=== PATIENT | female | born 1990 | race Caucasian/White ===

== ENCOUNTER 2017-01-28 01:37 | Inpatient (IN) | payer OTHER ==
--- NOTE | 2017-01-25 13:16 | MH ---
cc: FRANCA TEJEDA DATE OF ADMISSION 01/28/2017 DATE OF 1990 ADMISSION DIAGNOSIS 1. Term 2. Previous HISTORY OF PRESENT ILLNESS The patient is a 26-year-old white female para 1-0-1-1 with an LMP of 04/30/2016, EDC of 01/2017. Her first delivery by after pushing for three hours with no descent. Her course has been benign. She is now admitted for repeat section. ADDITIONAL PAST MEDICAL HISTORY In 2000, she had left hip surgery. MEDICATIONS Vitamins ALLERGIES PINEAPPLE, BANANA, AVOCADO SERIOUS MEDICAL ILLNESS Hypothyroidism since her first on Synthroid 15 mg daily. SOCIAL HISTORY , homemaker. Alcohol, tobacco and drugs are none. PHYSICAL EXAM This a well-nourished well-developed white female. VITAL SIGNS: Stable. HEENT: Exam is normal. CHEST: Clear. HEART: Regular rate. BREASTS: Symmetrical. ABDOMEN: Gravid, EFW 3000 grams with the placenta posterior. ASSESSMENT As above. PLAN She is now admitted for repeat section. While in the office, I explained the procedures, risks, benefits and complications and patient would like to proceed. MD GERRY Dunn/MYRIAM /12:47 PM /1:01 PM
[2017-01-28] VITALS (10 sets, daily range): BP systolic 109–125; BP diastolic 58–72; PULSE 60–121; RESP 8–22; TEMP 97.4–98.8; O2SAT 99–100
[~2017-01-28] VITALS: Ht 157.5 cm; Wt 82.6 kg
[2017-01-28 02:02] LABS: AUTOMATED NEUTROPHIL # 5.1 TH/MM3 (1.8-7.7); BASOPHIL # 0.1 TH/MM3 (0-0.2); BASOPHIL % 0.8 % (0.0-2.0); EOSINOPHIL # 0.3 TH/MM3 (0-0.4); EOSINOPHIL % 2.8 % (0.0-4.0); HEMATOCRIT 39.8 % (35.0-46.0); HEMO FLAGS DIFF FINAL; LYMPH % 33.3 % (9.0-44.0); LYMPHOCYTE # 3.1 TH/MM3 (1.0-4.8); MEAN CELL VOLUME 88.4 FL (80.0-100.0); MEAN CORPUSCULAR HEMOGLOBIN 30.1 PG (27.0-34.0); MEAN CORPUSCULAR HGB CONC 34.1 % (32.0-36.0); MONO % 7.9 % (0.0-8.0); NEUT % 55.2 % (16.0-70.0); PLATELET COUNT 179 TH/MM3 (150-450); RED BLOOD COUNT 4.51 MIL/MM3 (4.00-5.30); RED CELL DISTRIBUTION WIDTH 13.7 % (11.6-17.2); WHITE BLOOD COUNT 9.3 TH/MM3 (4.0-11.0)
[2017-01-28 02:04] LABS: BACTERIA, URINE MANY /hpf; BLOOD, URINE MOD (NEG); COMMENT (UR) CULTURE INDICATED; CULTURE IF INDICATED CULTURE INDICATED; GLUCOSE,URINE NEG (NEG); KETONE, URINE NEG (NEG); NITRITE,URINE NEG (NEG); PH, URINE 6.5 (5.0-8.5); SQUAMOUS EPITHELIAL CELL URINE 8 /hpf (0-5); URINE COLOR LIGHT-YELLOW (YELLW/STRAW)
[2017-01-28] MEDS ORDERED: LACTATED RINGER'S 1000 ML IV ONE (02:15)
[2017-01-28] MEDS ORDERED: ceFAZolin 2 GM PREMIX 50 ML IV SCH (02:15)
[2017-01-28] MEDS ORDERED: CITRIC ACID-SODIUM CITRATE LIQ 30 ML UDC PO SCH (02:15)
[2017-01-28] MEDS: SODIUM CHLORIDE 0.9% FLUSH 5 ML FLUSH IV SCH ×2 (02:52→09:00)
[2017-01-28] MEDS ORDERED: ACETAMINOPHEN 1000 MG/100 ML 100 ML IV ONE (02:57)
[2017-01-28] MEDS ORDERED: KETOROLAC TROMETHAMINE 60 MG/2 ML (IM) VIAL IM PRN (03:30)
[2017-01-28] MEDS ORDERED: OXYTOCIN 30 UNITS-500ML PREMIX 500 ML IV ONE (03:30)
[2017-01-28] MEDS ORDERED: oxyCODONE/ACETAMINOPHEN 5 MG/325 MG TAB PO PRN (03:30)
[2017-01-28] MEDS ORDERED: ZOLPIDEM TARTRATE 5 MG TAB PO PRN (03:30)
[2017-01-28] MEDS ORDERED: KETOROLAC TROMETHAMINE 30 MG/ML (IVP) VIAL IV PUSH PRN (03:30)
[2017-01-28] MEDS ORDERED: MEASLES, MUMPS, RUBELLA VACCINE 0.5 ML VIAL SQ ONE (03:30)
[2017-01-28] MEDS ORDERED: SIMETHICONE 80 MG CHEWABLE TAB PO PRN (03:30)
[2017-01-28] MEDS ORDERED: SODIUM CHLORIDE 0.9% FLUSH 5 ML FLUSH IV PRN (03:30)
[2017-01-28] MEDS ORDERED: ONDANSETRON HCL 4 MG/2 ML VIAL IVP PRN (03:30)
[2017-01-28] MEDS ORDERED: OXYTOCIN 30 UNITS-500ML PREMIX 500 ML ONE (04:27)
[2017-01-28] MEDS ORDERED: EPIDURAL-DO NOT ADMINISTER ANTICOAGULANTS PRN (05:15)
[2017-01-28] MEDS ORDERED: EPIDURAL-DIPHENHYDRAMINE HCL 50 MG CAP PO PRN (05:15)
[2017-01-28] MEDS ORDERED: EPIDURAL-DIPHENHYDRAMINE HCL 50 MG/ML VIAL IV PUSH PRN (05:15)
[2017-01-28] MEDS ORDERED: EPIDURAL-NO SYSTEMIC NARCOTICS PRN (05:15)
[2017-01-28] MEDS ORDERED: EPIDURAL-NALOXONE HCL 0.4 MG/ML AMP IV PUSH PRN (05:15)
[2017-01-28] MEDS: LEVOTHYROXINE SODIUM 50 MCG TAB PO SCH (07:25)
--- NOTE | 2017-01-28 07:40 | MP ---
cc: FRANCA TEJEDA DATE OF SURGERY 01/28/2017 PREOPERATIVE DIAGNOSES Term , early labor. Previous . POSTOPERATIVE DIAGNOSES Term , early labor. Previous . Delivered. PROCEDURE Repeat low transverse section. ANESTHESIA Spinal. SURGEON Franca Tejeda MD ESTIMATED BLOOD LOSS About 500 cc. FLUIDS 1.6 liters crystalloid. OBJECTIVE FINDINGS Following the induction of adequate spinal anesthesia the patient was prepped and draped supine on the operating room table, in the left lateral tilt position in sterile fashion with the bladder being drained via Ferguson catheterization. The abdomen was opened through a Pfannenstiel incision using a knife to cut down through the skin to the fascia. The fascia was opened transversely, stripped from the muscles. The rectus muscle was split in the midline and the peritoneum opened sharply without incident. The bladder flap was taken down sharply, retracted inferiorly with the Vergas blade. The lower uterine segment was incised transversely with a knife, extended with blunt dissection revealing clear fluid. The baby was in the LOT position, was gently delivered with assistant refinery operator guidance and fundal pressure. The mouth was suctioned, the cord clamped and cut and the baby to the team, a viable, vigorous male, Apgars 8 and 9, weight 8 pounds even. Cord blood was collected for typing, the placenta for donation and the uterine cavity cleaned with laps and exteriorized. The uterine wound was then closed in two layers of running suture, the first with a running, locking stitch of 0 Vicryl, the second with a running imbricating stitch of 0 Vicryl. Posterior inspection of the uterus, tubes and ovaries was normal. The uterus was now replaced in the abdominal cavity, irrigation performed and the bladder flap was closed with a running stitch of 3-0 Vicryl. All laps and retractors were removed. Counts were correct. The anterior peritoneum was closed with a running stitch of 2-0 Vicryl. The fascia was closed with a running locking stitch of Vicryl from corners to the midline and tied, subcu with continuous 3-0 Vicryl and skin with running subcuticular 3-0 Monocryl. Dermabond was applied. All counts were correct and the patient was awakened and taken to the recovery room in good position. MD GERRY Dunn/FLORI /3:38 AM /7:32 AM
[2017-01-28] MEDS: LACTATED RINGER'S 1000 ML IV SCH ×2 (08:55→17:12)
[2017-01-28] MEDS: ACETAMINOPHEN 1000 MG/100 ML VIAL IV SCH ×2 (11:37→18:14)
[2017-01-28] MEDS: LACTATED RINGER'S 1000 ML INJ 1,000 ML IV SCH (11:38)
[2017-01-28] MEDS ORDERED: OXYTOCIN 30 UNITS-500ML PREMIX 500 ML IV PRN (18:15)
[2017-01-29] VITALS: BP 135/75; PULSE 80; RESP 17; TEMP 98.7; O2SAT 100
[2017-01-29] MEDS: ACETAMINOPHEN 1000 MG/100 ML VIAL IV SCH (02:52)
[2017-01-29 05:59] LABS: AUTOMATED NEUTROPHIL # 5.7 TH/MM3 (1.8-7.7); BASOPHIL % 0.5 % (0.0-2.0); EOSINOPHIL # 0.1 TH/MM3 (0-0.4); EOSINOPHIL % 1.1 % (0.0-4.0); HEMATOCRIT 35.3 % (35.0-46.0); HEMO FLAGS DIFF FINAL; LYMPHOCYTE # 1.3 TH/MM3 (1.0-4.8); MEAN CELL VOLUME 89.4 FL (80.0-100.0); MEAN CORPUSCULAR HEMOGLOBIN 30.7 PG (27.0-34.0); MEAN CORPUSCULAR HGB CONC 34.3 % (32.0-36.0); MONO % 7.8 % (0.0-8.0); NEUT % 73.6 % (16.0-70.0); PLATELET COUNT 111 TH/MM3 (150-450); RED BLOOD COUNT 3.95 MIL/MM3 (4.00-5.30); RED CELL DISTRIBUTION WIDTH 13.5 % (11.6-17.2); WHITE BLOOD COUNT 7.8 TH/MM3 (4.0-11.0)
[2017-01-29 06:24] LABS: BICARBONATE 26.7 MEQ/L (21.0-32.0); POTASSIUM 4.2 MEQ/L (3.5-5.1)
[2017-01-29] MEDS: LEVOTHYROXINE SODIUM 50 MCG TAB PO SCH (06:31)
[2017-01-29] MEDS: LACTATED RINGER'S 1000 ML IV SCH (08:55)
[2017-01-29] MEDS: LACTATED RINGER'S 1000 ML INJ 1,000 ML IV SCH (08:55)
[2017-01-29] MEDS: SODIUM CHLORIDE 0.9% FLUSH 5 ML FLUSH IV SCH (08:55)
[2017-01-29] MEDS: DOCUSATE SODIUM 50 MG/SENNA 8.6 MG TAB PO PRN ×2 (09:01→21:25)
[2017-01-29] MEDS: IBUPROFEN 600 MG TAB PO PRN ×3 (09:02→21:25)
[2017-01-29 19:25] VITALS: BP 108/59; PULSE 65; RESP 20; TEMP 97.4
[2017-01-29] MEDS: oxyCODONE/ACETAMINOPHEN 5 MG/325 MG TAB PO PRN (21:25)
[2017-01-30] MEDS: oxyCODONE/ACETAMINOPHEN 5 MG/325 MG TAB PO PRN (03:14)
[2017-01-30] MEDS: IBUPROFEN 600 MG TAB PO PRN ×2 (03:15→09:13)
[2017-01-30] MEDS: LEVOTHYROXINE SODIUM 50 MCG TAB PO SCH (06:30)
[2017-01-30 08:00] VITALS: BP 106/61; PULSE 64; RESP 18; TEMP 98
[2017-01-30] MEDS ORDERED: OXYC1TAB63 PO (08:08)
--- NOTE | 2017-01-30 08:08 | HHI.DCPOC ---
Discharge Care Plan Report Symptoms to Your Doctor -Temperature above 100.5 degrees -Redness, of incision or excessive or foul smelling drainage -Unusual pain or calf pain -Increased vaginal bleeding -Painful or difficulty urinating -Feelings of extreme sadness or anxiety after 2 weeks Goals to Promote Your Health * To prevent worsening of your condition and complications * To maintain your health at the optimal level Directions to Meet Your Goals Take your medications as prescribed Follow your dietary instruction Follow activity as directed Ensure plenty of rest for recovery Drink fluids for hydration Keep your appointments as scheduled Take your immunizations and boosters as scheduled If your symptoms worsen call your PCP, if no PCP go to Urgent Care Center or Emergency Room Smoking is Dangerous to Your Health. Avoid second hand smoke Call the 24-hour crisis hotline for domestic abuse at Rishi Marks MD Jan 30, 2017 08:08
[2017-01-30] MEDS ORDERED: DIPHTH/TETANUS/ACEL PERTUSSIS (BOOSTER) 0.5 ML VIAL/PFS IM ONE (09:00)
[2017-01-30] MEDS: DOCUSATE SODIUM 50 MG/SENNA 8.6 MG TAB PO PRN (09:13)
--- NOTE | 2017-01-30 09:45 | MD ---
cc: FRANCA TEJEDA ADMISSION DATE: 01/28/2017 DISCHARGE DATE: 01/30/2017 Omer Visit Search.Discharge Date ADMITTING DIAGNOSIS 1. Term , active labor. 2. Previous for cephalopelvic disproportion. HISTORY OF PRESENT ILLNESS The patient is a 26-year-old white female, para 1-0-1-1 with an LMP of 04/30/2016, EDC of 02/04/2017. Her initial care was in [place]. She has been followed by me since 11/20/2016. During her first delivery she progressed to complete-complete and pushed for three hours with failure to deliver and planned this . HOSPITAL COURSE She developed active labor on the morning of 01/28/2017, was admitted for repeat section and had delivery of a viable vigorous male, Apgars 8 and 9, weight 8 pounds even. The baby was named Nino and she was bottle feeding. she did well and was discharged home in excellent condition on 01/30/2017. Her pre and post-op labs were normal. She was advised NPV, light activity, no driving, return to see me in one week. She is to call for abnormal pain, bleeding, temperature, signs of infection or depression. She will take her Synthroid and vitamins at home. She was given a prescription for Percocet 5, 1-2 p.o. q.4h. p.r.n. pain, #60. She was carefully instructed in postoperative wound and circumcision care. MD GERRY Dunn/JOSE /8:16 AM /9:43 AM
== END 2017-01-30 11:34 | disposition home or self-care (01) | DRG 766 ==
LOC: H2EB 01:37 → H1EA 04:52
PROVIDERS: ADMIT Obstetrics & Gynecology; ATTEND Obstetrics & Gynecology
PROC: 10D00Z1 Extraction of Products of Conception, Low, Open Approach (ICD-10-PCS; principal; 2017-01-28)
DX: O34.211 Maternal care for low transverse scar from previous cesarean delivery (principal); Z37.0 Single live birth; Z3A.00 Weeks of gestation of pregnancy not specified
CPT/HCPCS: 59025; 80048; 80307; 81001; 85025; 86850; 86900; 86901; 87086; 90715; J0131; J0690; J1200; J2590; J7120